=== PATIENT | female | born 1970 | race Caucasian/White ===

== ENCOUNTER 2016-07-29 21:07 | Emergency (ER) | payer OTHER ==
[2016-07-29] MEDS ORDERED: NORMAL SALINE 10 ML SYRINGE FLUSH IVP PRN (21:14)
[2016-07-29] MEDS ORDERED: Sodium Chloride 0.9% 1,000 ML PRIMARY IV ONE (21:14)
[2016-07-29] MEDS ORDERED: ASPIRIN 81 MG (BABY) CHEWABLE TABLET PO ONE (21:14)
[2016-07-29] MEDS ORDERED: ONDANSETRON 4 MG/2 ML VIAL IVP ONE (21:14)
[2016-07-29] MEDS ORDERED: LORazepam 2 MG/1 ML VIAL IVP ONE (21:15)
--- NOTE | 2016-07-29 21:17 | EKG ---
[address] [address] Measurements Intervals [place] Rate: 101 P: 54 [place]: 130 QRS: 60 QRSD: 93 T: 38 QT: 339 QTc: 397 Interpretive Statements SINUS TACHYCARDIA ABNORMAL RHYTHM ECG Compared to ECG 11/23/2015 14:35:30 Sinus rhythm no longer present Electronically Signed On 07-30-16 09:07:39 [facility] by Valentino Hugo [email or web address]
[2016-07-29 21:20] LABS: BASOPHILS # (AUTO) 0.03 10*3/UL; BASOPHILS % (AUTO) 0.4 % (0-1); EOSINOPHILS % (AUTO) 2.4 % (0-8); HEMATOCRIT 43.3 % (37.0-47.0); IMM GRAN % (AUTO) 0.1 % (0-5); IMM GRAN# (AUTO) 0.01 10*3/UL; LYMPHOCYTES # (AUTO) 2.47 10*3/uL; LYMPHOCYTES % (AUTO) 30.9 % (10-50); MEAN CORPUSCULAR HEMOGLOBIN 31.8 PG (27-31); MEAN CORPUSCULAR HGB CONC 34.6 g/dL (33-37); MEAN PLATELET VOLUME 10.1 FL (7.4-12.2); MONOCYTES # (AUTO) 0.51 10*3/UL (0.3-0.8); MONOCYTES % (AUTO) 6.4 % (5-15); NEUTROPHILS # (AUTO) 4.78 10*3/UL; NEUTROPHILS % (AUTO) 59.8 % (50-80); PLATELET MORPHOLOGY COMMENT NORMAL MORPHOLOGY (NORM); RDW COEFFICIENT OF VARIATION 12.7 % (11.5-14.5); RED BLOOD COUNT 4.71 10^6/uL (4.20-5.40); WHITE BLOOD COUNT 7.99 10^3/uL (4.8-10.8)
[2016-07-29 21:31] LABS: AMYLASE 66 U/L (30-110); ASPARTATE AMINO TRANSFERASE 17 IU/L (8-39); BILIRUBIN,TOTAL 0.4 mg/dL (0.3-1.2); BLOOD UREA NITROGEN 13 mg/dL (7-22); BUN/CREATININE RATIO 18.57 (6-20); CALCIUM 8.9 mg/dL (8.7-10.7); CHLORIDE 107 meq/L (98-112); CREATININE 0.7 mg/dL (0.50-1.20); EST GLOMERULAR FILTRATION > 60 (>60 ml/min/1.73m(2)); GLUCOSE 207 mg/dL (78-110); POTASSIUM 3.5 meq/L (3.8-5.2); SODIUM 142 meq/L (135-145); TOTAL PROTEIN 7.9 g/dL (6.1-8.0)
[2016-07-29 21:42] VITALS: RESP 20; TEMP 97.9
[2016-07-29] MEDS ORDERED: LORazepam 1 MG TABLET PO SCH (23:45)
--- NOTE | 2016-07-30 01:29 | PDOC ---
Chest Pain HPI - General Chief Complaint: Chest Pain Stated Complaint: CHEST PAIN Date Seen by Provider: 07/29/16 Time Seen by Provider: 21:10 Source: Patient Exam Limitations: POSITIVE: No limitations Treatment Prior to Arrival: REPORTS: None - History of Present Illness Initial Comments: The patient is a 46-year-old female who presents to the emergency department with pains across her chest. She states that approximately half hour prior to arrival here in the emergency room she had onset of some pain across her chest associated with increased anxiety and some shortness of breath. She states that she thinks she is having a panic attack however because of the chest pain she presents here to the emergency room. Her pain is not worsened with deep inspiration. She does have some associated nausea. She denies headache, numbness or weakness in her extremities or any other associated symptoms. She is currently on prescription medication for anxiety. She does smoke. She denies any history of hypertension, diabetes or hyperlipidemia. No known history of coronary artery disease and no significant family history of coronary artery disease. - Patient Home Medications Home Medications: Home Medications Calcium Carbonate/Vitamin D3 [Calcium 600 + Vit D Tablet] 1 each PO BID Multivit with Calcium,Iron,Min [Women's Daily Multivitamin] 1 each PO DAILY tab 02/06/16 Vilazodone Hydrochloride [Viibryd] 1 tab PO DAILY #30 tab 06/03/16 - Patient Allergies Allergies/Adverse Reactions: Allergies Allergy/AdvReac Type Severity Reaction Status Date / Time No Known Allergies Allergy Verified 07/29/16 21:25 Past Medical History - heen HEENT History: Denies History Additional HEENT History: WEARS GLASSES Cardiovascular History: Other (please comment) Additional Cardiovasular History: Pt reports previous chest pain with ER visits x3. Pt reports all labs and tests were negative so no further f/u has been done at this time. Respiratory History: Denies History Additional Respiratory History: SEASONAL ALLERGIES Gastrointestinal History: Denies History Additional Gastrointestinal History: HEARTBURN AT TIMES Genitourinary History: Denies History Endocrine History: Denies History Musculoskeletal History: Denies History Prosthesis or Implant: No Neurological History: Migraines, Frequent Headaches Blood Disorders: Denies History Additional Blood Disorders History: DVT 1993, BLOOD THINNERS FOR TREATMENT Psychiatric History: Depression, Anixety Disorders, Other (please comment) Additional Psychiatric History: Pt reports history of "sever" panic attacks History of Sexually Transmitted Diseases: No Cancer History: Denies History In Past Year Been Physically Harmed or Verbally Threatened: No History of MDRO: No History of Other Communicable Diseases: No Tobacco Use: Current Every Day Smoker Alcohol Use: Occasionally Substance Use Type: None Previous Surgical History: Yes Type / Date of Surgery: tuabl ligation, bilat carpel tunnel, tonsils, WISDOM TEETH, hysterectomy Anesthesia Reactions: No Malignant Hyperthermia: No Significant Family History: Heart disease, Hypertension Past Medical History Reviewed: Reviewed - No Changes ROS - Limitations ROS Limitations: No Limitations Constitution: DENIES: Chills, Fever Cardiovascular: REPORTS: Chest Pain. DENIES: Heart Racing, Heart Palpitations, Blood Pressure Problem, Edema Respiratory: REPORTS: Shortness Of Breath. DENIES: Hurts To Breathe Neurological: REPORTS: Denies Neuro Symptoms. DENIES: Headache, Numbness, Weakness Gastrointestinal: REPORTS: Nausea. DENIES: Abdominal Pain, Vomitting Musculoskeletal: REPORTS: Denies MS Symptoms. DENIES: Calf Pain, Lower Extremity Swelling Eyes: REPORTS: Denies Symptoms ENT: REPORTS: Denies Symptoms Skin: DENIES: Rash Chest Pain PE - General Appearance General Appearance: REPORTS: Alert, Cooperative, No Acute Distress, Anxious - HEENT HEENT: POSITIVE: Head Inspection Nml, Eyes Inspection Nml, Ears Inspection Nml, Nose Inspection Nml, Pharynx Inspect. Nml, PERRL, EOMI - Respiratory Respiratory: REPORTS: No Respiratory Distress, Breath Sounds Normal - Cardiovascular Cardiovascular: REPORTS: Regular Rate and Rhythm, Heart Sounds Normal Peripheral Pulses: Dorsalis-pedis (R): 2+, Dorsalis-pedis (L): 2+ - Abdomen Abdomen: Soft: (All Quadrants), Denies Tenderness: (All Quadrants), No Distention: (All Quadrants) - Skin Skin: REPORTS: Intact, No Rash - Extremities Extremity: Normal ROM: (All Extremities), Normal Inspection: (All Extremities) - Neurological / Psychological Neurological: POSITIVE: Other (No focal neurologic deficits) Chest Pain Progress - Results Reviewed by me Xrays/CTs/US Reviewed by me: Yes Discussed with Radiologist: Yes Radiology Findings: Chest x-ray shows normal heart size, normal lung claudio. Lab Results Reviewed: Yes Lab Results:: Laboratory Results 07/29/16 07/29/16 07/29/16 Range/Units 21:14 21:19 23:25 WBC 7.99 (4.8-10.8) 10^3/uL RBC 4.71 (4.20-5.40) 10^6/uL Hgb 15.0 (12.0-16.0) g/dL Hct 43.3 (37.0-47.0) % MCV 91.9 (81-99) FL MCH 31.8 H (27-31) PG MCHC 34.6 (33-37) g/dL RDW Std Deviation 42.0 (39-50) fL RDW Coeff of Jerzy 12.7 (11.5-14.5) % Plt Count 264 (140-350) 10*3/uL MPV 10.1 (7.4-12.2) FL Immature Gran % (Auto) 0.1 (0-5) % Neut % (Auto) 59.8 (50-80) % Lymph % (Auto) 30.9 (10-50) % Hendry % (Auto) 6.4 (5-15) % Eos % (Auto) 2.4 (0-8) % Baso % (Auto) 0.4 (0-1) % Immature Gran # (Auto) 0.01 10*3/UL Neut # (Auto) 4.78 10*3/UL Lymph # (Auto) 2.47 10*3/uL [place] # (Auto) 0.51 (0.3-0.8) 10*3/UL Eos # (Auto) 0.19 10*3/UL Baso # (Auto) 0.03 10*3/UL WBC Morphology Comment Normal morphology (NORM) Plt Morphology Comment Normal morphology (NORM) RBC Morph Comment Normal morphology (NORM) D-Dimer 0.23 (0.00-0.59) mg/L Sodium 142 (135-145) meq/L Potassium 3.5 L (3.8-5.2) meq/L Chloride 107 (98-112) meq/L Carbon Dioxide 25 (23-33) meq/L Anion Gap 10 (5-20) BUN 13 (7-22) mg/dL Creatinine 0.7 (0.50-1.20) mg/dL Estimated GFR > 60 (>60 ml/min/1.73m(2)) BUN/Creatinine Ratio 18.57 (6-20) Glucose 207 H (78-110) mg/dL Calculated Osmolality 299.0 H (267-292) mOsm/kg Calcium 8.9 (8.7-10.7) mg/dL Magnesium 2.0 (1.6-2.4) mg/dL Total Bilirubin 0.4 (0.3-1.2) mg/dL AST 17 (8-39) IU/L ALT 26 (9-52) IU/L Alkaline Phosphatase 96 (38-126) IU/L CK-MB (CK-2) Pending Troponin I 0.000 0.000 (< 0.040) ng/mL Total Protein 7.9 (6.1-8.0) g/dL Albumin 4.3 (3.5-4.8) g/dL Globulin 3.6 (2.50-4.10) g/dL Albumin/Globulin Ratio 1.10 L (1.3-2.0) mg/g Amylase 66 (30-110) U/L Lipase 123 (23-300) IU/L EKG Interpreted/Reviewed By Me:: Yes EKG Interpretation:: POSITIVE: Normal Sinus Rhythm, Normal Rate, Normal Intervals, Normal [place], Normal QRS, Normal ST/T - Patient's Progress MDM / ED Course: The patient's initial EKG shows normal sinus rhythm with no acute ST segment or T-wave changes. She did receive aspirin per chest pain protocol. Her symptoms are consistent with panic attack and she did receive Ativan 1 mg IV. Symptoms subsequently resolved. Her initial blood work reveals a normal troponin a normal d-dimer as well as other lab work which is unremarkable. A repeat troponin done 2 hours after onset of symptoms remained 0. At this point cardiac etiology seems less likely. She does have a history of anxiety and panic attacks and her current presentation is consistent with this. She was discharged home with advised return to the emergency room if she develops increased chest pain or shortness of breath. She will follow-up with primary care to discuss stress testing just to further rule out cardiac etiology as an outpatient. - Consult Counseled: POSITIVE: Patient, Family, RE: Lab Results, RE: Radiology Results, RE : DX, RE: Need for F/U Patient Care Time - Estimated PCT Patient Care Time (In Minutes): 35 Vital Signs - Recent Vital Signs Vital Signs: Vital Signs (Last 8 hours) Temp Pulse Pulse Resp BP Pulse Ox 07/29/16 21:10 97.9 F 101 H 112 H 20 133/80 95 - VS Reviewed Vital Signs Reviewed: Yes Discharge Clinical Impression: Panic attack Condition: Stable Patient Instructions Given at Discharge: Panic Attack (ED) Additional Instructions: Your EKG was normal and your blood work was all normal as well. This would make blood clots or heart problems much less likely as the cause of your current symptoms. Most likely the current symptoms are caused by a panic attack. Your symptoms have improved with administration of Ativan. You have been discharged home with 2 doses of Ativan which you can take if needed for recurrent anxiety or panic attack. Recommend that she return to the emergency room if increased chest pain or shortness of breath, any worsening or change in symptoms. Recommend follow-up with primary care, call tomorrow to arrange follow-up. Discuss the possibility of doing a stress test to further eliminate cardiac cause of symptoms. Follow Up With: MADISON ROGER [Primary Care Provider] -
--- NOTE | 2016-07-30 09:16 | DI ---
XR CXR 1VW,07/29/2016 9:14 PM: Clinical History: Chest pain Previous Exam: None at this facility. Findings: A single frontal radiograph of the chest is obtained, and demonstrate clear lungs. The cardiomediasti num and bony thorax are unremarkable. Overlying EKG leads are noted. Impression: Normal chest.
[2016-08-01 19:37] LABS: CREATINE KINASE MB 0.68 NG/DL (0.00-5.00)
== END 2016-07-30 00:14 | disposition home or self-care (01) ==
LOC: ER 21:07
DX: F41.0 Panic disorder [episodic paroxysmal anxiety] (principal); R06.02 Shortness of breath; R11.0 Nausea; F17.210 Nicotine dependence, cigarettes, uncomplicated
CPT/HCPCS: 71010; 80053; 82150; 82553; 83690; 83735; 84484; 85025; 85379; 93005; 93010; 96374; 96375; 99284; J2060; J2405; J7030

== ENCOUNTER → 2016-08-07 | Outpatient (CLI) | payer OTHER ==
[2016-08-07 11:49] LABS: HEMOGLOBIN A1C 6.79 % (4.2-6.0); MEAN BLOOD GLUCOSE (CALC) 140.107 mg/dL
== END ==
LOC: MOB LAB 09:18
PROVIDERS: ATTEND Nurse Practitioner Family
DX: R73.09 Other abnormal glucose (principal); L65.9 Nonscarring hair loss, unspecified; R53.83 Other fatigue; R63.5 Abnormal weight gain; R19.7 Diarrhea, unspecified
CPT/HCPCS: 36415; 83036; 84439; 84443; 84481; 86376

== ENCOUNTER → 2016-08-18 | Outpatient (CLI) | payer OTHER ==
--- NOTE | 2016-08-18 16:44 | DI ---
THYROID ULTRASOUND, 08/18/2016 9:33 AM Clinical History: Hypothyroidism. Previous Exam: None. Scans are performed through both lobes of the thyroid gland in multiple projections with the high res olution linear array probe. Color Doppler ultrasound is also performed. Both lobes of the thyroid gland are of normal size. The right and left lobes measure 19 x 12 x 49 mm, and 13 x 14 x 38 mm, in the AP, transverse, and longitudinal dimensions, respectively. There is no s olid or cystic lesion either in the isthmus or in the right lobe. There is a 7 x 7 x 5 mm hypoechoic well-circumscribed nodule in the midportion of the left lobe of the thyroid gland consistent with a b enign hyperplastic nodule. Reading: Normal thyroid ultrasound.
== END ==
LOC: US 09:19
PROVIDERS: ATTEND Nurse Practitioner Family
DX: E05.90 Thyrotoxicosis, unspecified without thyrotoxic crisis or storm (principal); F17.210 Nicotine dependence, cigarettes, uncomplicated
CPT/HCPCS: 76536

== ENCOUNTER → 2016-08-18 | Outpatient (CLI) | payer OTHER ==
[2016-08-18 17:41] LABS: CREATININE, URINE 11.5 MG/DL (15-500)
== END ==
LOC: MOB LAB 15:16
PROVIDERS: ATTEND Nurse Practitioner Family
DX: E11.9 Type 2 diabetes mellitus without complications (principal)
CPT/HCPCS: 82043

== ENCOUNTER → 2016-09-03 | Outpatient (CLI) | payer OTHER ==
[2016-09-03 11:01] LABS: BLOOD UREA NITROGEN 12 mg/dL (7-22); BUN/CREATININE RATIO 17.14 (6-20); CALCIUM 9.6 mg/dL (8.7-10.7); CHLORIDE 104 meq/L (98-112); CREATININE 0.7 mg/dL (0.50-1.20); EST GLOMERULAR FILTRATION > 60 (>60 ml/min/1.73m(2)); GLUCOSE 115 mg/dL (78-110); POTASSIUM 4.7 meq/L (3.8-5.2); SODIUM 139 meq/L (135-145)
== END ==
LOC: MOB LAB 09:35
PROVIDERS: ATTEND Nurse Practitioner Family
DX: E11.9 Type 2 diabetes mellitus without complications (principal); F17.210 Nicotine dependence, cigarettes, uncomplicated
CPT/HCPCS: 36415; 80048

== ENCOUNTER → 2016-09-04 | Day surgery (SDC) | payer OTHER ==
[~2016-09-04] MED LIST: BETAMET ACET/BETAMET NA PH 6 MG/1 ML - 5 ML ONE; BUPIVACAINE 0.5% W/EPI MPF -30 ML VIAL IV ONE; BUPivacaine Inj 0.5% PF (5mg/ml) 10ml vial ONE; BUPivacaine Liposome/PF (Exparel) Inj 20ml vial INFIL ONE; HYDROcodone-APAP 10 MG-325 MG TABLET PO PRN; IPRATROPIUM/ALBUTEROL SULFATE 3 ML NEB NEB ONE; LIDOCAINE W/ SODIUM BICARB 0.5 ML SYR ONE; Lactated Ringers 1,000 ML PRIMARY IV ONE; MIDAZOLAM 5 MG/1 ML ONE; NORMAL SALINE 10 ML SYRINGE FLUSH IVP PRN; ROPIVACAINE HCL 7.5 MG/1 ML - 20 ML ONE; ceFAZolin Inj 2gm (Premix) 50 ML IV ONE; fentaNYL Inj 250 MCG/5 ML VIAL ONE
--- NOTE | 2016-09-04 07:49 | CRNA.PROCE ---
Nerve Block Documentation - - Safety Measures: Time Out Taken, Site Verified - - Type of Nerve Block Used: Left Popliteal Fossa Block (Primary anesthetic for Bunionectomy.) Position for Nerve Block: Prone Moniters Used During Block: EKG, SPO2, NIBP Oxygen Sumpplented: Yes Sedation Used - Enter Amount in Comment Field: Midazolam (mg): Yes (3 mg), Fentanyl (mcg): Yes (100 mcgs) Skin Prep Used: ChloroPrep (Twice) Draped: No Technique: Nerve Stimulator Nerve Block Needle Used: 80 mm ProBlk II Stimulation Hz: 1 Stimulation Staring mA: 1.6 Stimulation Ending mA: 0.6 Local Anesthetic - Enter Amt in Comment Field: 0.5 % Bupivicaine with Epinephrine 1:200,000 (mL): Yes (20 ml in 3 ml increments), Other Anesthetic: Yes (0.7 Ropivicaine 10 ml in 3 ml increments)
--- NOTE | 2016-09-04 11:20 | GEN.OPNOTE ---
Operative Report Surgeon: Diego Campo DPM Anesthesia Type: Regional, Local (with post operative exparel), MAC Anesthesia Provider: Aline Armstrong CRNA Surgery Date: 09/04/16 Preoperative Diagnosis: 1. Left hallux valgus. 2. Right plantar fasciitis Postoperative Diagnosis: 1. Left hallux valgus. 2. Right plantar fasciitis Procedure: 1. Left Lapidus bunionectomy. 2. Right plantar fascial injection proximal origin. Estimated Blood Loss (mL): 50 (a pneumatic cuff was used about the left ankle at 250 mmHg pressure. Up for 91 minutes, down for 24 minutes, up for 34 minutes.) Fluids: 1400 mL lactated Ringer's. 2 g Ancef preoperatively. Subcutaneous exparel at closure Complications: None Description of Procedure: The patient was brought to the operating room and placed in the supine position. They had already been given a popliteal block of the left lower extremity, and MAC was continued. The left foot was prepped and draped in the usual sterile fashion. A timeout was performed. A preoperative C-arm radiograph was taken to help delineate the area of concern, the joints, and these were marked on the foot. The foot was then exsanguinated with an Esmarch bandage, after which a pneumatic cuff was inflated about the ankle to 250 mmHg pressure. A linear incision was made over the dorsal lateral foot from the medial cuneiform down to the first metatarsophalangeal joint. This was deepened by sharp and blunt dissection taking care to retract neurovascular structures. Dissection was carried into the first intermetatarsal space along the lateral aspect of the first metatarsal phalangeal joint capsule. A capsulotomy releasing the lateral sesamoidal ligament and inverted L capsulotomy was performed. The adductor tendons were then identified at their insertion into the plantar lateral aspect of the base of the proximal phalanx and were released. Attention was directed to the first metatarsal head prominent dorsal medial exostosis. The joint capsule was reflected from the medial aspect of the first metatarsal head, and the medial and dorsal-medial bone reduced. It was then noted that the first metatarsal angle was able to be reduced. The proximal incision was next deepened to the first metatarsal cuneiform joint , with the dissection taking place between the extensor hallucis longus tendon and the anterior tibialis insertion. The joint capsule was then carefully released medially, medial plantarly, dorsally, and dorsal laterally. It was noted that the base of the first metatarsal lateral condyle was prominent and of concern. Using a power bur and a sagittal saw the cartilage was removed from the base of the first metatarsal and from the medial cuneiform taking care to protect the first intermetatarsal space. The prominent lateral aspect of the base of the first metatarsal was reduced with a sagittal saw. Once all the cartilage was removed, both sides of the joint were broken up with a 5 mm osteotome and mallet to disrupt the subchondral plate and increase the chance for osteo- synthesis. A clamp was then placed on from the head of the first metatarsal to the head of the third metatarsal and gentle compression was applied to reduce the first intermetatarsal space and angle. This was done under C-arm guidance. The superior edge of the medial cuneiform was also reduced as it had become prominent. The wound was copiously irrigated. A 3 DI crosscheck Lapidus plate 0 was selected. This was fixated in place with all pins, and checked with the C-arm. A distal 3.520 mm locking screw and a 3.518 mm locking screw was used to fixate the plate to the first metatarsal base. Next a 3.526 mm cross/lag screw was placed which gave good compression of the first metatarsal cuneiform fusion. Finally a 3.5 times 16mm and 3.540 mm locking screws were placed in the plate into the medial cuneiform. The bone clamp was removed the reduction remained. Under C-arm the intermetatarsal angle head closed to approximately 4 which appeared to be satisfactory. The wound was irrigated after which the proximal closure of the joint tissues and subcutaneous tissues over the plate was performed. The pneumatic cuff was then released from the left ankle having been up for 91 minutes total time. With the cuff down, and under C-arm final modifications made and joint capsule. The wound was copiously irrigated. After 24 minutes, the pneumatic cuff was reinflated about the left ankle. The medial capsulorrhaphy was completed, having removed excess and redundant joint capsule, and the joint capsule was closed with 2-0 Vicryl. The remaining subcutaneous tissues were closed with 4- 0 Vicryl in layered fashion. The first metatarsophalangeal joint still had excellent range of motion. The skin was then closed with 4-0 nylon in a running sub cuticular fashion. The wound was reinforced with Mastisol and Steri -Strips. A dressing was applied consisting of Xeroform gauze, fluffs, 3 inch Kerlix, and three-inch Coban. The pneumatic cuff was then released from the left ankle after 34 minutes the second time. Capillary return was noted to all toes. Patient was returned recovery and will be kept initially nonweightbearing. However still be encouraged to move the great toe is much they feel they would like to, and I also encouraged hip and knee flexion. Postoperative medications have already been written and picked up, and they have crutches and are considering a knee scooter as well. The first postoperative dressing change will be in 1 week.
[2016-09-04 11:50] VITALS: RESP 16
--- NOTE | 2016-09-04 12:54 | DI ---
XR FOOT COMPLETE MIN 3VW,09/04/2016 11:03 AM: Clinical History: Left hallux valgus. Previous Exam: July 09, 2016 Findings: 3 views of the left foot are obtained, and demonstrate new postsurgical changes consistent with screw and plate fixation of the first tarsometatarsal joint. There is overlying soft tissue swelling. Ther e has been improvement of the hallux valgus deformity of the left first metatarsophalangeal joint. Impression: Postsurgical changes as above.
[2016-09-04 14:02] VITALS: TEMP 98.1
== END ==
LOC: SDSC 06:00
PROVIDERS: ATTEND Podiatrist Foot & Ankle Surgery
DX: M20.12 Hallux valgus (acquired), left foot (principal); M72.2 Plantar fascial fibromatosis
CPT/HCPCS: 20551; 28297; 73630; 76001; 87641; 94640; C9290; J0690; J0702; J2704; J3010; S0020; J2250; J3490; J7120

== ENCOUNTER → 2016-10-08 | Outpatient (CLI) | payer OTHER ==
--- NOTE | 2016-10-08 11:08 | DI ---
LEFT FOOT, 10/08/2016 10:22 AM: Clinical History: Hallux valgus of the left foot. Previous Exam: 09/04/2016. 3 weightbearing views are submitted. The patient is status post arthrodesis between the medial cuneif orm bone and the first metatarsal bone. There is still a lucency between the base of the first metata rsal bone and the medial cuneiform bone. The remainder of the examination is unremarkable. Reading: Status post arthrodesis of the medial cuneiform bone and the first metatarsal bone. A lucency is stil l present between these 2 bones.
== END ==
LOC: MOB RAD 10:27
PROVIDERS: ATTEND Podiatrist Foot & Ankle Surgery
DX: Z47.89 Encounter for other orthopedic aftercare (principal); M20.12 Hallux valgus (acquired), left foot; F17.210 Nicotine dependence, cigarettes, uncomplicated; Z98.1 Arthrodesis status
CPT/HCPCS: 73630

== ENCOUNTER → 2016-11-12 | Outpatient (CLI) | payer OTHER ==
--- NOTE | 2016-11-12 11:48 | DI ---
LEFT FOOT, 11/12/2016 10:50 AM: Clinical History: Hallux valgus of the left foot. Previous Exam: 10/08/2016. 3 weightbearing views are submitted. The patient is status post arthrodesis of the first tarsometatar damaris joint and on the lateral view, the arthrodesis site still shows a lucency. There is a bunion with hallux valgus. Readin. Bunion with hallux valgus. 2. Status post arthrodesis of the first tarsometatarsal joint and there is still a lucency at the ar throdesis site.
== END ==
LOC: MOB RAD 10:51
PROVIDERS: ATTEND Podiatrist Foot & Ankle Surgery
DX: M20.12 Hallux valgus (acquired), left foot (principal); Z98.1 Arthrodesis status
CPT/HCPCS: 73630

== ENCOUNTER → 2016-12-09 | Outpatient (CLI) | payer OTHER ==
[2016-12-09 14:53] LABS: FREE T4 (FREE THYROXINE) 1.15 ng/dL (0.93-1.71)
== END ==
LOC: LAB 07:46
PROVIDERS: ATTEND Student in an Organized Health Care Education/Training Program
DX: E05.90 Thyrotoxicosis, unspecified without thyrotoxic crisis or storm (principal)
CPT/HCPCS: 36415; 84439; 84443

== ENCOUNTER → 2017-02-22 | Outpatient (CLI) | payer OTHER ==
[2017-02-22 07:46] LABS: CHOL/HDL RATIO 3.1 RATIO (0-4.0); LDL CHOLESTEROL,CALCULATED 81.4 mg/dL
[2017-02-22 07:48] LABS: HEMOGLOBIN A1C 6.29 % (4.2-6.0)
[2017-02-22 08:40] LABS: BLOOD UREA NITROGEN 12 mg/dL (7-22); CALCIUM 9.3 mg/dL (8.7-10.7); EST GLOMERULAR FILTRATION > 60 (>60 ml/min/1.73m(2))
== END ==
LOC: LAB 07:22
PROVIDERS: ATTEND Nurse Practitioner Family
DX: E11.9 Type 2 diabetes mellitus without complications (principal); E78.5 Hyperlipidemia, unspecified; R51 Headache; F41.1 Generalized anxiety disorder; Z72.0 Tobacco use
CPT/HCPCS: 36415; 80048; 82247; 82465; 82550; 82977; 83036; 83718; 84075; 84450; 84460; 84478